=== PATIENT | male | born 2000 | race Caucasian/White ===

== ENCOUNTER 2024-04-18 18:23 | Emergency (ER) | payer OTHER, BC ==
[2024-04-18] MEDS: Diphtheria,Pertussis(Acell),Tetanus Vaccine 0.5 ML Syringe IM ONE (18:45)
[2024-04-18 19:01] VITALS: BP 122/64; PULSE 74
== END 2024-04-18 19:00 | disposition home or self-care (01) ==
LOC: VM.ED 18:23
DX: S61.212A Laceration without foreign body of right middle finger without damage to nail, initial encounter (principal); W26.8XXA Contact with other sharp object(s), not elsewhere classified, initial encounter
CPT/HCPCS: 90471; 90715; 99283-25